=== PATIENT | male | born 1985 | race Caucasian/White ===

== ENCOUNTER 2018-05-29 13:38 | Emergency (ER) | payer OTHER ==
[~2018-05-29] VITALS: Ht 172.7 cm; Wt 71.8 kg
[~2018-05-29 13:38] MED LIST: ALBU1AER9 INH; AZIT500T3 PO; FLVHFA110 INH
[2018-05-29 13:51] VITALS: TEMP 36.8; Ht 172.7 cm; Wt 71.8 kg
[2018-05-29] MEDS ORDERED: ALBU18002 INH (14:18)
[2018-05-29] MEDS ORDERED: AMOX875T PO (14:18)
[2018-05-29] MEDS ORDERED: TEST1INJ2 INJ (14:18)
[2018-05-29 14:54] LABS: BASO % 0.5 %; BASO ABS # 0.03 K/uL (0-0.2); EOS % 2.9 %; EOS ABS # 0.19 K/uL (0-0.5); HEMATOCRIT 44.3 % (42-52); HEMOGLOBIN 15.1 g/dL (14.0-18.0); IG# 0.03 K/uL (0.00-0.02); LYMPH % 29.7 %; LYMPH ABS # 1.98 K/uL (1.2-3.4); MEAN CELL VOLUME 95.5 fL (80-100); MEAN CORPUSCULAR HEMOGLOBIN 32.5 pg (25-34); MEAN CORPUSCULAR HGB CONC 34.1 g/dl (32-36); MONO % 12.2 %; MONO ABS # 0.81 K/uL (0.11-0.59); NEUT % 54.2 %; NEUT ABS # 3.62 K/uL (1.4-6.5); PLATELET COUNT 281 K/uL (130-400); RED CELL DISTRIBUTION WIDTH CV 15.4 % (11.5-14.5); RED CELL DISTRIBUTION WIDTH SD 53.4 fL (36.4-46.3); WHITE BLOOD COUNT 6.66 K/uL (4.8-10.8)
--- NOTE | 2018-05-29 15:03 | DIAGNOSTIC IMAGING REPORT ---
LEFT HAND 3 VIEWS HISTORY: Left hand dog bite COMPARISON: None. FINDINGS: There is no fracture or dislocation. Soft tissue swelling at the base of the thumb No radiopaque foreign bodies. IMPRESSION: No fractures. Electronically signed by: Davin Nguyen M.D. 05/29/2018 3:02 PM Dictated Date/Time: 05/29/2018 3:00 PM
[2018-05-29 15:16] LABS: ALBUMIN 3.9 gm/dl (3.4-5.0); CALCIUM 8.5 mg/dl (8.5-10.1); CREATININE 1.35 mg/dl (0.60-1.40); POTASSIUM 3.8 mmol/L (3.5-5.1); TOTAL PROTEIN 7.5 gm/dl (6.4-8.2)
[2018-05-29] MEDS ORDERED: RABIES VACCINE (IMOVAX) HUMAN DIPL CELL 2.5 INTER.UNIT/ML SYR IM. ONE (16:00)
[2018-05-29] MEDS ORDERED: RABIES IMMUNE GLOBULIN (HUMAN) 150 INTER.UNIT/ML 2 ML VIAL IM. ONE (16:00)
--- NOTE | 2018-05-29 17:24 | EMERGENCY ROOM VISIT NOTE ---
History Report prepared by Minesh: Mary Alanis Under the Supervision of: Dr. Katerina Garza D.O. First contact with patient: 14:03 Chief Complaint: ILLNESS Stated Complaint: DIARRHEA,ABD PAIN,HEADACHE,BRAIN FOG History of Present Illness The patient is a 32 year old male who presents to the Emergency Room with complaints of constant illness starting last night. The patient states that yesterday at 0925 he was bitten by a small dog on his left hand. He states that the dog's owner operator ran away and he is unsure if the dog was rabid or not. He states that he went to [facility] yesterday and they started him on Augmenting. He reports that they gave him a Tetanus shot, but did not do an x- ray and did not start the rabies vaccines prophylactically. He reports that he was told to be on the lookout for rabies symptoms. The patient states that last night he started the antibiotics. He states that he took one dose last night and one this morning. He notes that he developed diarrhea and abdominal pain after taking the medication. He states that assumed it was from the antibiotics , but became nervous when he started to develop a headache and pressure behind his eyes. He reports that he began to feel dizzy, fatigued, and like he had "brain fog." The patient states that when he got up this morning he felt fine so he went to the gym, came home, and ate before taking his antibiotic. He states that shortly after he felt the symptoms come on again. The patient states that he called [facility] to see if his symptoms were something he should be concerned about, but they had no idea what they were talking about. He states that they denied seeing him and he could hear them Googling symptoms. He reports that after they asked if he was drooling and attacking people he hung up and decided to come here. The patient complains of a dry mouth and feeling anxious. The patient denies nausea. Source of History: patient Onset: last night Quality: other (illness) Timing: constant Modifying Factors (Worsening): other (augmentin) Associated Symptoms: + headache, + abdominal pain, + diarrhea, + fatigue, No nausea Note: The patient complains of pressure behind his eyes, dizziness, "brain fog," feeling anxious, and a dry mouth. Review of Systems See HPI for pertinent positives & negatives. A total of 10 systems reviewed and were otherwise negative. Past Medical & Surgical Medical Problems: (1) Anxiety (2) Depression (3) Hx of gastroesophageal reflux (GERD) Family History No pertinent family history Social History Smoking Status: Current Every Day Smoker Marital Status: single Housing Status: lives with roommate Occupation Status: [employer] student Current/Historical Medications Scheduled Amoxicillin & Pot Clavulanate (Augmentin 875-125 mg), 1 TAB PO BID Testosterone Cypionate (Testosterone Cypionate), 200 MG INJ WK Scheduled PRN Albuterol Sulfate (Proair Respiclick), 2 PUFFS INH QID PRN for SOB/Wheezing Allergies Coded Allergies: Doxycycline (Verified Allergy, Mild, RASH, 05/29/18) Physical Exam Vital Signs Date Time Temp Pulse Resp B/P (MAP) Pulse Ox O2 Delivery O2 Flow Rate FiO2 05/29/18 17:45 104 16 127/86 99 Room Air 05/29/18 15:50 92 16 149/88 97 Room Air 05/29/18 13:51 36.8 104 18 127/86 99 Room Air Physical Exam GENERAL: alert, well appearing, well nourished, no distress, non-toxic EYE EXAM: normal conjunctiva, PERRL and EOM's grossly intact OROPHARYNX: no exudate, no erythema, lips, buccal mucosa, and tongue normal and mucous membranes are moist NECK: supple, no nuchal rigidity, no adenopathy, non-tender LUNGS: Clear to auscultation. Normal chest wall mechanics HEART: no murmurs, S1 normal and S2 normal ABDOMEN: abdomen soft, non-tender, normo-active bowel sounds, no masses, no rebound or guarding. BACK: Back is symmetrical on inspection and there is no deformity, no midline tenderness, no CVA tenderness. SKIN: no rashes and no bruising UPPER EXTREMITIES: upper extremities are grossly normal. Subcentimeter superficial laceration on the dorsum of his left hand near the web space between the first and second digit. No surrounding erythema. No bony tenderness. Full ROM. LOWER EXTREMITIES: No pitting edema. NEURO EXAM: Normal sensorium, cranial nerves II-XII grossly intact, normal speech, no gross weakness of arms, no gross weakness of legs. Medical Decision & Procedures ER Provider Diagnostic Interpretation: Radiology results have been interpreted by the radiologist and reviewed by me. LEFT HAND 3 VIEWS HISTORY: Left hand dog bite COMPARISON: None. FINDINGS: There is no fracture or dislocation. Soft tissue swelling at the base of the thumb No radiopaque foreign bodies. IMPRESSION: No fractures. Electronically signed by: Davin Nguyen M.D. 05/29/2018 3:02 PM Dictated Date/Time: 05/29/2018 3:00 PM Laboratory Results 05/29/18 14:45 Red Blood Count 4.64, Mean Corpuscular Volume 95.5, Mean Corpuscular Hemoglobin 32.5, Mean Corpuscular Hemoglobin Concent 34.1, Mean Platelet Volume 10.0, Neutrophils (%) (Auto) 54.2, Lymphocytes (%) (Auto) 29.7, Monocytes (%) (Auto) 12.2, Eosinophils (%) (Auto) 2.9, Basophils (%) (Auto) 0.5, Neutrophils # (Auto ) 3.62, Lymphocytes # (Auto) 1.98, Monocytes # (Auto) 0.81, Eosinophils # (Auto ) 0.19, Basophils # (Auto) 0.03 05/29/18 14:45 Test 05/29/18 14:45 White Blood Count 6.66 K/uL (4.8-10.8) Red Blood Count 4.64 M/uL (4.7-6.1) Hemoglobin 15.1 g/dL (14.0-18.0) Hematocrit 44.3 % (42-52) Mean Corpuscular Volume 95.5 fL (80-100) Mean Corpuscular Hemoglobin 32.5 pg (25-34) Mean Corpuscular Hemoglobin Concent 34.1 g/dl (32-36) Platelet Count 281 K/uL (130-400) Mean Platelet Volume 10.0 fL (7.4-10.4) Neutrophils (%) (Auto) 54.2 % Lymphocytes (%) (Auto) 29.7 % Monocytes (%) (Auto) 12.2 % Eosinophils (%) (Auto) 2.9 % Basophils (%) (Auto) 0.5 % Neutrophils # (Auto) 3.62 K/uL (1.4-6.5) Lymphocytes # (Auto) 1.98 K/uL (1.2-3.4) Monocytes # (Auto) 0.81 K/uL (0.11-0.59) Eosinophils # (Auto) 0.19 K/uL (0-0.5) Basophils # (Auto) 0.03 K/uL (0-0.2) RDW Standard Deviation 53.4 fL (36.4-46.3) RDW Coefficient of Variation 15.4 % (11.5-14.5) Immature Granulocyte % (Auto) 0.5 % Immature Granulocyte # (Auto) 0.03 K/uL (0.00-0.02) Anion Gap 10.0 mmol/L (3-11) Est Creatinine Clear Calc Drug Dose 76.7 ml/min Estimated GFR () 80.5 Estimated GFR (Non- 69.5 BUN/Creatinine Ratio 14.2 (10-20) Calcium Level 8.5 mg/dl (8.5-10.1) Total Bilirubin 0.4 mg/dl (0.2-1) Aspartate Amino Transf (AST/SGOT) 25 U/L (15-37) Alanine Aminotransferase (ALT/SGPT) 32 U/L (12-78) Alkaline Phosphatase 81 U/L (45-117) Total Protein 7.5 gm/dl (6.4-8.2) Albumin 3.9 gm/dl (3.4-5.0) Globulin 3.6 gm/dl (2.5-4.0) Albumin/Globulin Ratio 1.1 (0.9-2) Laboratory results per my review. Medications Administered Medications (Trade) Dose Ordered Sig/Sabrina Route Start Time Stop Time Status Last Admin Dose Admin Rabies Immune Globulin (Imogam Rabies Inj) 1,500 interunit ONCE ONCE IM. 05/29/18 16:00 05/29/18 16:01 DC 05/29/18 17:37 1,500 INTERUNIT Rabies Vaccine Human Diploid Cell (Imovax Rabies) 2.5 interunit ONCE ONCE IM. 05/29/18 16:00 05/29/18 16:01 DC 05/29/18 17:38 2.5 INTERUNIT ED Course 1414: The patient was evaluated in room C8. A complete history and physical exam was performed. 1534: I reevaluated the patient and discussed the rabies and antibiotics. He would like the full rabies set. Patient states he has had noted that his symptoms are worse in the first few hours after he takes dose of his antibiotic and that he feels better by the hours leading up to being due to take the second dose. 1600: Ordered Imovax Rabies 2.5 interunit IM, Imogam Rabies Inj 1500 interunit IM. 1722: Upon reevaluation, the patient is feeling better. I discussed the findings and the treatment plan with the patient. He verbalizes agreement and understanding. The patient was discharged home. Medical Decision Differential diagnoses includes dog bite, cellulitis, foreign body, insect bite , fracture. Patient well-appearing here and I have a low suspicion for occult evolving infection in the area of the dog bite. Patient states he tried for 3 hours after the bite to find the owner operator and dog again but was unsuccessful. I did discuss at length with the patient the rabies immunoglobulin and vaccination series. Patient would like to have this performed even if it does result in a large bill. X-rays here are reassuring and no evidence of additional trauma or crush injury. Patient's labs reassuring also despite his symptoms. Given patient's symptoms as well as the timing of them, I feel they are most likely related to his Augmentin. I did discuss with pharmacist other antibiotics, however at this time it seems that a second here regimen which would include 2 different antibiotics is more likely to have additional side effects than 2 more days of his current. I did instruct the patient that he did not have to take the Augmentin for 10 days as was originally prescribed. Discussed with him at this point in time 3 days for prophylaxis should be sufficient. Discussed with patient follow-up, vaccination schedule, symptoms to watch and return for, he verbalized understanding was agreeable with plan. Patient hemodynamically stable throughout. Medication Reconcilliation Current Medication List: was personally reviewed by me Blood Pressure Screening Patient's blood pressure: Elevated blood pressure Blood pressure disposition: Elevated BP felt to be situational Impression Primary Impression: Dog bite Additional Impressions: Nausea Diarrhea Fatigue Scribe Attestation The scribe's documentation has been prepared under my direction and personally reviewed by me in its entirety. I confirm that the note above accurately reflects all work, treatment, procedures, and medical decision making performed by me. Departure Information Dispostion Home / Self-Care Referrals [facility] (PCP) Forms HOME CARE DOCUMENTATION FORM, IMPORTANT VISIT INFORMATION, WORK / SCHOOL INSTRUCTIONS Patient Instructions [facility] Additional Instructions Please continue the antibiotics and you may finish taking them after you complete day 3. Please take the antibiotics with food. Please drink plenty of water to stay well-hydrated. Please follow-up as directed regarding the rabies vaccinations. If you have any increased pain or redness around the site, develop fevers or chills, vomiting, black or bloody stools, worsening abdominal pain, trouble breathing, you have any other new concerns, please return the emergency room. Problem Qualifiers Primary Impression: Dog bite Encounter type: subsequent encounter Qualified Codes: W54.0XXD - Bitten by dog, subsequent encounter Additional Impressions: Diarrhea Diarrhea type: unspecified type Qualified Codes: R19.7 - Diarrhea, unspecified Fatigue Fatigue type: unspecified Qualified Codes: R53.83 - Other fatigue
[2018-05-29 17:45] VITALS: BP 127/86; PULSE 104; O2SAT 99
== END 2018-05-29 18:18 | disposition home or self-care (01) ==
LOC: C.EDB 13:54 → C.EDC 18:18
DX: S61.452A Open bite of left hand, initial encounter (principal); W54.0XXA Bitten by dog, initial encounter; R10.9 Unspecified abdominal pain; R51 Headache; R42 Dizziness and giddiness; R53.1 Weakness; F17.200 Nicotine dependence, unspecified, uncomplicated; Z79.890 Hormone replacement therapy; Z88.1 Allergy status to other antibiotic agents

== ENCOUNTER 2018-06-01 10:45 | Emergency (ER) | payer OTHER ==
[~2018-06-01] VITALS: Ht 172.7 cm; Wt 73.0 kg
[~2018-06-01 10:45] MED LIST changes: +ALBU18002 INH; -ALBU1AER9 INH; +AMOX875T PO; -AZIT500T3 PO; -FLVHFA110 INH; +TEST1INJ2 INJ
[2018-06-01 10:48] VITALS: Ht 172.7 cm; Wt 73.0 kg
[2018-06-01] MEDS ORDERED: RABIES VACCINE (IMOVAX) HUMAN DIPL CELL 2.5 INTER.UNIT/ML SYR IM. ONE (11:15)
[2018-06-01 11:30] VITALS: BP 125/78; PULSE 91; TEMP 36.6; O2SAT 99
--- NOTE | 2018-06-02 06:33 | EMERGENCY ROOM VISIT NOTE ---
ED Visit Note First contact with patient: 10:50 Chief Complaint: I have come from a second rabies shot. History of Present Illness: Mr. Kelley is a 32 year-old male who ambulates into the ED requesting his second rabies immunization after a dog bite to the left hand. Patient reports his dog bite is healing well. He reports she has had no symptoms with his previous immunizations and he is feeling well today. Review of Symptoms: As noted above. Past Medical History, Current Medications, Allergies and Social History: As noted on previous visit. Physical Exam: VITAL SIGNS - Date Time Temp Pulse Resp B/P (MAP) Pulse Ox O2 Delivery O2 Flow Rate FiO2 06/01/18 11:30 36.6 91 20 125/78 99 06/01/18 10:48 36.6 91 20 125/78 99 Room Air GENERAL -32-year-old white male in no acute distress, non-toxic appearing, afebrile and hemodynamic stable. NEUROLOGICAL: Awake, alert and oriented X3. Answering questions appropriately and following commands. SKIN - Warm, dry and pink. Left hand: No signs of infection in the area of his dog bite. ED Course: Patient is assessed as noted above. Since medication cyst was reviewed. Previous ED visit note was reviewed. Patient was give 2.5 units of rabies vaccination IM. Patient was reassessed and had no additional symptoms. Patient was educated about today's finding and instructed on his treatment plan ; he verbalized understanding and agreement with this plan. Clinical Impression: Rabies Prophylaxis. Disposition: Patient discharged to home in stable condition; prior to dischaged patient subjectively reported he was feeling fine and was not having any symptoms. Plan: Urged to continue his current treatment plan as prescribed previously. Patient was encouraged to follow-up with his PCP or return to emergency department as needed.
== END 2018-06-01 11:31 | disposition home or self-care (01) ==
LOC: C.EDB 10:46 → C.EDD 11:31
DX: Z20.3 Contact with and (suspected) exposure to rabies (principal); Z23 Encounter for immunization

== ENCOUNTER 2018-06-05 09:52 | Emergency (ER) | payer OTHER ==
[~2018-06-05] VITALS: Ht 170.2 cm; Wt 74.5 kg
[2018-06-05 09:55] VITALS: TEMP 36.9; Ht 170.2 cm; Wt 74.5 kg
[2018-06-05] MEDS ORDERED: RABIES VACCINE (IMOVAX) HUMAN DIPL CELL 2.5 INTER.UNIT/ML SYR IM. ONE (10:30)
[2018-06-05 11:15] VITALS: BP 135/77; PULSE 89; O2SAT 100
--- NOTE | 2018-06-06 08:37 | EMERGENCY ROOM VISIT NOTE ---
ED Visit Note First contact with patient: 10:13 Chief Complaint: Rabies Immunization Return Visit. History of Present Illness: Mr. Kelley is a 32 year-old male who ambulates into the ED requesting his third rabies immunization after an exposure from a dog bit. He after his last immunization shot he reports no adverse reactions or symptoms. Today he reports she is feeling well and is not experiencing any fevers, chills, sweats, skin eruptions, headaches, chest pain, shortness of breath, abdominal pain, nausea/vomiting, joint pains. Additionally he has not seen any erythema, edema or red streaking in the area of his dog bite on the left hand. Review of Symptoms: As noted above in History of Present Illness. Past Medical History, Current Medications, Allergies and Social History: As noted on previous visit. Physical Exam: VITAL SIGNS - Date Time Temp Pulse Resp B/P (MAP) Pulse Ox O2 Delivery O2 Flow Rate FiO2 06/05/18 11:15 89 20 135/77 100 Room Air 06/05/18 09:55 36.9 90 18 150/82 100 Room Air GENERAL -32-year-old white male in no acute distress, non-toxic appearing, afebrile and hemodynamic stable. NEUROLOGICAL: Awake, alert and oriented. Answering questions appropriately and following commands. SKIN - Warm, dry and pink. ED Course: Patient is assessed as noted above. Patient's medication and previous ED visit note was reviewed. Patient was give 2.5 units of rabies vaccination IM. Patient was reassessed and had no additional symptoms. Patient was educated about today's finding and instructed on their treatment plan; they verbalized understanding and agreement with this plan. Clinical Impression: Rabies Prophylaxis. Disposition: Patient discharged to home in stable condition; prior to dischage patient subjectively reported symptom free. Plan: Patient was encouraged to continue his current treatment plan and vaccination schedules. Patient was encouraged to follow-up with his PCP or return to the ED as needed for any adverse reactions or other concerning symptoms.
== END 2018-06-05 11:20 | disposition home or self-care (01) ==
LOC: C.EDB 09:54
DX: Z20.3 Contact with and (suspected) exposure to rabies (principal); Z23 Encounter for immunization